=== PATIENT | male | born 1970 | race Caucasian/White ===

== ENCOUNTER → 2023-08-13 | Outpatient (CLI) | payer OTHER ==
--- NOTE | 2023-08-13 09:54 | CA ---
Transthoracic Echo Report Name: Dk Christensen Age: 53 Gender: M : 1970 Exam Date: 08/13/2023 08:41 Exam Location: [facility] Ht (in): 72 Wt (lb): 275 Ordering Physician: Jack Alejandro MD Attending/Referring Phys: Arlen Sierra [facility] Application Engineer Sue Pearson RDCS Procedure CPT: Indications: R06.09 UNSPECIFIED ABNORMALITIES OF BREATHING Cardiac Hx: Technical Quality: Fair Contrast 1: Total Dose (mL): Contrast 2: Total Dose (mL): MEASUREMENTS (Male / Female) Normal Values 2D ECHO LV Diastolic Diameter PLAX 4.9 cm 4.2 - 5.9 / 3.9 - 5.3 cm LV Systolic Diameter PLAX 3.8 cm IVS Diastolic Thickness 1.4 cm 0.6 - 1.0 / 0.6 - 0.9 cm LVPW Diastolic Thickness 1.4 cm 0.6 - 1.0 / 0.6 - 0.9 cm LV Relative Wall Thickness 0.6 RV Internal Dim ED PLAX 3.7 cm LA Systolic Diameter LX 4.5 cm 3.0 - 4.0 / 2.7 - 3.8 cm LV Diastolic Volume MOD 4C 151.2 cm??? LV Systolic Volume MOD 4C 61.1 cm??? LV Ejection Fraction MOD 4C 59.6 % LV Cardiac Index MOD 4C 1791.8 cm???/min???m??? LV Diastolic Length 4C 8.4 cm LV Systolic Length 4C 7.1 cm LV Diastolic Volume MOD 2C 87.0 cm??? LV Systolic Volume MOD 2C 31.3 cm??? LV Ejection Fraction MOD 2C 64.0 % LV Cardiac Index MOD 2C 1107.0 cm???/min???m??? LV Diastolic Length 2C 7.8 cm LV Systolic Length 2C 6.7 cm LA Volume 83.6 cm??? 18 - 58 / 22 - 52 cm??? LA Volume Index 32.6 cm???/m??? 16 - 28 cm???/m??? M-MODE Aortic Root Diameter MM 3.2 cm MV E Point Septal Separation 0.3 cm AV Cusp Separation MM 2.4 cm DOPPLER AV Peak Velocity 125.8 cm/s AV Peak Gradient 6.3 mmHg MV Area PHT 4.4 cm??? Mitral E Point Velocity 72.7 cm/s Mitral A Point Velocity 57.8 cm/s Mitral E to A Ratio 1.3 MV Deceleration Time 170.9 ms TR Peak Velocity 237.7 cm/s TR Peak Gradient 22.6 mmHg Right Ventricular Systolic Press 27.2 mmHg FINDINGS Left Ventricle Left ventricular ejection fraction is estimated at 55-60 %. Left ventricular cavity size normal. Moderate concentric left ventricular hypertrophy. Right Ventricle Mild right ventricular dilatation. Right ventricular systolic pressure within normal limits. Right Atrium Normal right atrial size. No right atrial thrombus or mass seen. Left Atrium Normal left atrial size. No left atrial thrombus or mass present. Mitral Valve Structurally normal mitral valve. Trace mitral regurgitation. Aortic Valve Trileaflet aortic valve. No aortic valve stenosis or regurgitation. Tricuspid Valve Structurally normal tricuspid valve. Mild tricuspid regurgitation. Pulmonic Valve Structurally normal pulmonic valve. No pulmonic regurgitation. Pericardium No pericardial or pleural effusion. Aorta Normal size aortic root and proximal ascending aorta. CONCLUSIONS Normal LV size and systolic function. No significant abnormality on the Doppler exam. No pulmonary hypertension. No pericardial effusion Previewed by: Dr. Jose Alejandro Collins MD (Electronically Signed) Final Date: 13 Aug 2023 09:53
--- NOTE | 2023-08-13 12:13 | NM ---
EXAMINATION TYPE: NM stress cardiolite complete DATE OF EXAM: 08/13/2023 COMPARISON: NONE HISTORY: Abnormalities of breathing TECHNIQUE: After the intravenous administration of 9.6 mCi Tc 99m Sestamibi - Cardiolite resting SPE CT images acquired 45 minutes post injection. At peak stress 25.3 mCi Tc 99m Sestamibi - Stress images obtained 5 minutes post injection The patient was stressed with 0.4mg Lexiscan. FINDINGS: There is diminished radiotracer accumulation along the inferior lateral wall on both resting and stre ss images. This may be slightly larger on the stress images. Consider prior infarct with some ata-in farct stress-induced ischemic change. Wall motion is normal Ejection fraction is calculated to be 54 %. IMPRESSION: 1. Stress-induced ischemic change inferior lateral wall. Some mild underlying prior infarct may be pr esent
--- NOTE | 2023-08-13 13:11 | CA ---
Exercise Nuclear Stress Test Report Name: Dk Christensen Exam Date: 08/13/2023 09:43 Exam Location: [facility] Ht (in): 72 Wt (lb): 275 BSA: 2.44 Ordering Phys: Jack Alejandro MD Referring Phys: Arlen Sierra Technologist: ANNIE,, Age: 53 Gender: M : 1970 Procedure CPT: Indications: R06.9 UNSPECIFIED ABNORMALITIES OF BREATHING ICD-10 Codes: Patient History: Chest pain, shortness of breath and palpitations. Medications: NONE,,,,, Meds past 24 hrs: Pretest Chest Pain: STRESS TEST [place] Protocol Exercise Duration (min:sec): 08:[address] Depressions (mm): Angina Score: Mcfarlane Score: Resting HR (bpm): 60 Peak HR (bpm): 150 Resting BP (mmHg): 129 / 80 Peak BP (mmHg): 184 / 77 MPHR: 166 Target HR: 141 % MPHR: 90 METS: 10.3 Total Dose: Peak Dose: Atropine: Double Product: 94515 BP Response: Stress Termination: MAX EXERTION/TARGET HR Stress Symptoms: CHEST PRESSURE Stress Summary: ECG ANALYSIS Resting ECG: Stress ECG: CONCLUSIONS Baseline EKG revealed a normal sinus rhythm without significant ST-T changes. Patient walked on a standard [place] protocol for 8 minutes 40 seconds and achieved a maximum heart rate of 149 bpm which is 90% of predicted maximum heart rate. He developed mild chest pressure. At peak exercise he did not have any ST segment changes. In the recovery period at about 3 minutes into recovery there was inferior to lateral mild ST depression suggestive ischemia. No significant arrhythmia was noted. This is a positive stress test it more than 80-1/2 minutes of exercise and 90% of predicted maximal heart rate was transient brief symptoms of chest tightness. The nuclear scan results which are more pertinent will be reported by the radiologist Dr. Jose Alejandro Collins MD (Electronically Signed) Final Date: 13 Aug 2023 13:10
== END | disposition home or self-care (01) ==
LOC: RADNMMAIN 07:49
PROVIDERS: ATTEND Family Medicine
DX: R94.31 Abnormal electrocardiogram [ECG] [EKG] (principal); R06.09 Other forms of dyspnea
CPT/HCPCS: 93017; 93306; 78452; A9500